=== PATIENT | male | born 1975 | race Caucasian/White ===

== ENCOUNTER 2019-04-14 20:52 | Emergency (ER) | payer OTHER ==
[2019-04-14] MEDS ORDERED: IBUPROFEN 400 MG TABLET (FP) PO ONE ×2 (21:05→21:54)
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
[2019-04-14 21:06] VITALS: BP 148/76; PULSE 76; TEMP 98; BMI 28.0
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
== END 2019-04-14 22:50 | disposition home or self-care (01) ==
LOC: JERFT 20:52
DX: S80.11XA Contusion of right lower leg, initial encounter (principal); M79.644 Pain in right finger(s); Y35.811A Legal intervention involving manhandling, law enforcement official injured, initial encounter; Y93.89 Activity, other specified; Y92.89 Other specified places as the place of occurrence of the external cause; Y99.0 Civilian activity done for income or pay
CPT/HCPCS: 73140-TC-RT-FY; 73590-TC-RT-FY; 99281-25

== ENCOUNTER 2021-04-12 15:15 | Emergency (ER) | payer OTHER ==
[2021-04-12 15:26] VITALS: BP 145/75; PULSE 79; TEMP 97.8; BMI 28.0
[2021-04-12] MEDS ORDERED: NAPROXEN 500 MG TABLET PO ONE (15:29)
[2021-04-12] MEDS ORDERED: NAPROXEN 500 MG TABLET ONE (15:44)
== END 2021-04-12 16:07 | disposition home or self-care (01) ==
LOC: FER 15:15
DX: M25.522 Pain in left elbow (principal)
CPT/HCPCS: 73070-TC-LT-FY; 99283-25